=== PATIENT | male | born 2000 | race Caucasian/White ===

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

== ENCOUNTER 2021-04-28 16:46 | Emergency (ER) | payer OTHER ==
[~2021-04-28] VITALS: Ht 193 cm; Wt 125.0 kg
[2021-04-28] MEDS ORDERED: MOTRIN800 MG PO (19:51)
[2021-04-28 20:04] VITALS: BP 120/72
== END 2021-04-28 20:15 | disposition home or self-care (01) | DRG 563 ==
LOC: ED 16:46
DX: S39.012A Strain of muscle, fascia and tendon of lower back, initial encounter (principal); W13.3XXA Fall through floor, initial encounter; Y93.89 Activity, other specified; Y92.89 Other specified places as the place of occurrence of the external cause; Y99.0 Civilian activity done for income or pay